=== PATIENT | female | born 1945 | race Caucasian/White ===

== ENCOUNTER 2017-04-12 19:58 | Emergency (ER) | payer MEDICARE, OTHER ==
--- NOTE | 2017-04-12 20:16 | ED Physician Documentation ---
PD HPI ALTERED MENTAL STATUS - Stated complaint Stated Complaint: CONFUSION - Chief complaint Chief Complaint: Neuro - History obtained from History obtained from: Patient - History of Present Illness Timing - onset: Enter time (18:00), Today Timing - duration: Hours Timing - details: Abrupt onset Quality / character: Memory Loss Associated symptoms: No: Fever, Headache, Stiff neck, Dyspnea, Cough, NVD, Urinary sx, General weakness, Focal weakness, Seizure activity, Syncope Contributing factors: Recent illness (URI/sinusitis (is on antibiotic)). No: Anticoagulated, Diabetic, New medication, Intoxicated Basline status: Alert and oriented X 3, Ambulatory, Independent Similar symptoms before: Has not had sx before Recently seen: Not recently seen - Additional information Additional information: patient arrives with sudden onset of significant memory loss. she has no recollection of the past month, including tonight and ED arrival. patient's friend is present in ED at bedside and says she was driving patient from friend' s house when patient suddenly, at 6 pm, started asking questions as to where she was that indicated memory loss. Patient arrived back to the area from a one- month trip to [facility] yesterday, and she has no recollection of any of this. Friend says patient's son picked her up at airport and then took her to an urgent care for URI symptoms. Patient, again, has no recollection of any of this. Review of Systems Unable to obtain: Confused (due to memory loss, ROS is limited to what patient can assess now (as opposed to symptoms she might have experienced prior to ED arrival)) Eyes: denies: Loss of vision, Decreased vision, Photophobia Ears: denies: Loss of hearing, Ear pain, Tinnitus/ringing Cardiac: reports: Reviewed and negative Respiratory: reports: Reviewed and negative GI: reports: Reviewed and negative : denies: Dysuria, Frequency Neurologic: reports: Altered mental status (memory loss). denies: Generalized weakness, Focal weakness, Numbness, Difficulty speaking, Near syncope, Syncope, Seizure, Unresponsive, Headache, Head injury, LOC PD PAST MEDICAL HISTORY - Past Medical History Cardiovascular: None Respiratory: None Neuro: Head injury (Oct 2011 with facial fracture and concussion; patient did not need surgery. ), Fainting (an episode about a week ago, preceded by general weakness and nausea with some vertigo. She awoke with nausea, vomiting, and diarrhea briefly, then better the next morning. 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 : None HEENT: None Psych: Depression, Anxiety Musculoskeletal: None Derm: None - Past Surgical History Past Surgical History: Yes /UPSTREAM BIOMANUFACTURING TECHNICIAN: Hysterectomy - Present Medications Home Medications: Ambulatory Orders Medication Instructions Recorded Confirmed Calcium [Calcio Madeline] 500 mg PO DAILY 08/18/12 08/18/12 - Allergies Allergies/Adverse Reactions: Allergies Allergy/AdvReac Type Severity Reaction Status Date / Time simvastatin Allergy Intermediate weak Verified 04/12/17 21:55 muscles - Social History Does the pt smoke?: No Smoking Status: Never smoker Does the pt have substance abuse?: No - Immunizations Immunizations are current?: Yes - POLST Patient has POLST: No PD ED PE NORMAL - Vitals Vital signs reviewed: Yes - General General: Well developed/nourished, Other (appropriately anxious, tearful at times due to being frightened with not being able to remember the past month) - HEENT HEENT: PERRL, EOMI, Moist mucous membranes - Neck Neck: Supple, no meningeal sign - Cardiac Cardiac: RRR, No murmur, No gallop, No rub - Respiratory Respiratory: No respiratory distress, Clear bilaterally - Abdomen Abdomen: Soft, Non tender - Derm Derm: Normal color, Warm and dry, No rash - Extremities Extremities: No edema - Neuro 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, No motor deficit, No sensory deficit, Normal speech, Other (AAOx2 (does not know day, date, month, year; does not know President)) Eye Opening: Spontaneous Motor: Obeys Commands Verbal: Confused (oriented x 2 (place, person, but not time)) GCS Score: 14 Results - Vitals Vitals: Oxygen O2 Source Room air - Labs Labs: Laboratory Tests 04/12/17 04/12/17 04/12/17 20:40 20:40 20:40 WBC 7.6 RBC 4.59 Hgb 12.9 Hct 39.9 MCV 86.9 MCH 28.1 MCHC 32.4 RDW 13.3 Plt Count 236 MPV 10.1 Neut # 4.9 Lymph # 1.7 [place] # 0.6 Eos # 0.3 Baso # 0.0 Absolute Nucleated RBC 0.00 Nucleated RBC % 0.1 PT 11.3 INR 1.0 APTT 27.2 Sodium 139 Potassium 3.7 Chloride 103 Carbon Dioxide 23 Anion Gap 13.0 BUN 15 Creatinine 0.8 Estimated GFR (MDRD) 71 L Glucose 101 H Calcium 9.4 Total Bilirubin 1.0 AST 31 ALT 30 Alkaline Phosphatase 85 Total Protein 8.1 Albumin 4.2 Globulin 3.9 Albumin/Globulin Ratio 1.1 Lipase 25 TSH Urine Color Urine Clarity Urine pH Ur Specific [place] Urine Protein Urine Glucose (UA) Urine Ketones Urine Occult Blood Urine Nitrite Urine Bilirubin Urine Urobilinogen Ur Leukocyte Esterase Ur Microscopic Review Urine Culture Comments Urine Opiates Screen Ur Oxycodone Screen Urine Methadone Screen Ur Propoxyphene Screen Ur Barbiturates Screen Ur Tricyclics Screen Ur Phencyclidine Scrn Ur Amphetamine Screen U Methamphetamines Scrn U Benzodiazepines Scrn Urine Cocaine Screen U Cannabinoids Screen Ethyl Alcohol 10.6 18 04/12/17 20:40 21:20 WBC RBC Hgb Hct MCV MCH MCHC RDW Plt Count MPV Neut # Lymph # [place] # Eos # Baso # Absolute Nucleated RBC Nucleated RBC % PT INR APTT Sodium Potassium Chloride Carbon Dioxide Anion Gap BUN Creatinine Estimated GFR (MDRD) Glucose Calcium Total Bilirubin AST ALT Alkaline Phosphatase Total Protein Albumin Globulin Albumin/Globulin Ratio Lipase TSH 5.61 H Urine Color YELLOW Urine Clarity CLEAR Urine pH 7.0 Ur Specific [place] 1.010 Urine Protein NEGATIVE Urine Glucose (UA) NEGATIVE Urine Ketones NEGATIVE Urine Occult Blood NEGATIVE Urine Nitrite NEGATIVE Urine Bilirubin NEGATIVE Urine Urobilinogen 0.2 (NORMAL) Ur Leukocyte Esterase NEGATIVE Ur Microscopic Review NOT INDICATED Urine Culture Comments NOT INDICATED Urine Opiates Screen NEGATIVE Ur Oxycodone Screen NEGATIVE Urine Methadone Screen NEGATIVE Ur Propoxyphene Screen NEGATIVE Ur Barbiturates Screen NEGATIVE Ur Tricyclics Screen NEGATIVE Ur Phencyclidine Scrn NEGATIVE Ur Amphetamine Screen NEGATIVE U Methamphetamines Scrn NEGATIVE U Benzodiazepines Scrn NEGATIVE Urine Cocaine Screen NEGATIVE U Cannabinoids Screen NEGATIVE Ethyl Alcohol - Rads (name of study) CT head Radiology: Prelim report reviewed, See rad report chest xray Radiology: Prelim report reviewed, See rad report PD MEDICAL DECISION MAKING - ED course Complexity details: reviewed results, re-evaluated patient, considered differential, d/w patient ED course: D/W Dr. Raphael (neurology at [facility]), recommends MRI. MRI not available in [facility] until tomorrow morning. I then contacted [facility], but they have no beds. Recontacted Dr. Raphael, accepts patient for transfer to [facility] for MRI. After several hours in ED, patient exhibited significant improvement in recall, and eventually remembered events up until the evening of ED visit. Departure - Departure Disposition: 02 Transfer Acute Care Hosp Clinical Impression: Altered mental status Qualifiers: Altered mental status type: unspecified Qualified Code(s): R41.82 - Altered mental status, unspecified Condition: Good Discharge Date/Time: 04/13/17 08:46
[2017-04-12 20:54] LABS: BASOPHILS % (AUTO) 0.7 %; EOSINOPHILS # (AUTO) 0.3 10^3/uL (0.0-0.7); EOSINOPHILS % (AUTO) 4.1 %; HGB - HEMOGLOBIN 12.9 g/dL (12.0-16.0); LYMPHOCYTES # (AUTO) 1.7 10^3/uL (1.5-3.5); LYMPHOCYTES % (AUTO) 22.7 %; MEAN CORPUSCULAR HEMOGLOBIN 28.1 pg (27.0-31.0); MEAN CORPUSCULAR HGB CONC 32.4 g/dL (32.0-36.0); MEAN CORPUSCULAR VOLUME 86.9 fL (81.0-99.0); MEAN PLATELET VOLUME 10.1 fL (7.9-10.8); MONOCYTES # (AUTO) 0.6 10^3/uL (0.0-1.0); MONOCYTES % (AUTO) 7.8 %; NEUTROPHILS # (AUTO) 4.9 10^3/uL (1.5-6.6); NEUTROPHILS % (AUTO) 64.7 %; PLT - PLATELET COUNT 236 10^3/uL (130-450); RED BLOOD COUNT 4.59 10^6/uL (4.20-5.40); RED CELL DISTRIBUTION WIDTH 13.3 % (12.0-15.0); WHITE BLOOD COUNT 7.6 x10^3/uL (4.8-10.8)
[2017-04-12 20:59] LABS: PT - PROTHROMBIN TIME 11.3 secs (9.9-12.6)
[2017-04-12 21:08] LABS: ALBUMIN 4.2 g/dL (3.2-5.5); ALBUMIN/GLOBULIN RATIO 1.1 (1.0-2.2); CALCIUM 9.4 mg/dL (8.5-10.3); CREATININE 0.8 mg/dL (0.4-1.0); TOTAL PROTEIN 8.1 g/dL (6.7-8.2)
[2017-04-12 21:23] LABS: MUDS CUTOFF CONCENTRATIONS CUTOFF CONC BELOW:
[2017-04-12 21:26] LABS: BILIRUBIN,URINE NEGATIVE (NEGATIVE); GLUCOSE, URINE (UA) NEGATIVE (NEGATIVE); KETONES,URINE (UA) NEGATIVE (NEGATIVE); LEUKOCYTE ESTERASE, URINE NEGATIVE (NEGATIVE); NITRITE,URINE NEGATIVE (NEGATIVE); OCCULT BLOOD,URINE NEGATIVE (NEGATIVE); PROTEIN,URINE NEGATIVE (NEGATIVE); UROBILINOGEN,URINE 0.2 (NORMAL) E.U./dL (NORMAL)
[2017-04-12 21:27] LABS: CLARITY,URINE CLEAR (CLEAR)
[2017-04-12 21:37] LABS: AMPHETAMINE SCREEN,URINE NEGATIVE (NEGATIVE); BENZODIAZEPINES SCREEN, URINE NEGATIVE (NEGATIVE); COCAINE SCREEN URINE NEGATIVE (NEGATIVE); METHADONE SCREEN, URINE NEGATIVE (NEGATIVE); METHAMPHETAMINES SCREEN, URINE NEGATIVE (NEGATIVE); OPIATE SCREEN, URINE NEGATIVE (NEGATIVE); OXYCODONE SCREEN, URINE NEGATIVE (NEGATIVE); PROPOXYPHENE SCREEN, URINE NEGATIVE (NEGATIVE); TRICYCLIC ANTIDEPRESSANT,URINE NEGATIVE (NEGATIVE)
--- NOTE | 2017-04-12 22:16 | CT Preliminary Report ---
Exam: CT HEAD W/O IMPRESSION: 1. No acute intracranial process. 2. Air-fluid level and bubbly secretions in the left sphenoid sinus. Clinical correlation for acute s inusitis is recommended. [facility] SITE ID: [id number]
--- NOTE | 2017-04-12 22:22 | XRAY Preliminary Report ---
Exam: XR CHEST 2 VIEW X-RAY IMPRESSION: 1. Borderline heart size. No acute abnormality seen. [facility] SITE ID: [id number]
--- NOTE | 2017-04-12 22:22 | XRAY Report ---
EXAM: CHEST RADIOGRAPHY EXAM DATE: 04/12/2017 09:54 PM. CLINICAL HISTORY: Decreased mental status. Cough. COMPARISON: None. TECHNIQUE: 2 views. FINDINGS: Lungs/Pleura: No alveolar consolidation or pleural effusion seen. No pneumothorax. Mediastinum: Heart size upper normal. Other: Left shoulder prosthesis. IMPRESSION: 1. Borderline heart size. No acute abnormality seen. [facility] Referring Provider Line: [phone] SITE ID: [id number]
--- NOTE | 2017-04-12 22:22 | CT Report ---
EXAM: CT HEAD EXAM DATE: 04/12/2017 10:01 PM. CLINICAL HISTORY: Altered mental status. COMPARISON: None. TECHNIQUE: Multiaxial CT images were obtained from the foramen magnum to the vertex. Reformats: Coron al. IV contrast: None. In accordance with CT protocol optimization, one or more of the following dose reduction techniques w ere utilized for this exam: automated exposure control, adjustment of mA and/or KV based on patient s ize, or use of iterative reconstructive technique. FINDINGS: Parenchyma: No intraparenchymal hemorrhage. No evidence of mass, midline shift, or CT findings of acu te infarction. Pitts-white differentiation is distinct. Extraaxial Spaces: Normal for age. No subdural or epidural collections identified. Ventricles: The ventricles are normal in size, position, and morphology. Sinuses and orbits: Mucosal thickening is present throughout the partially visualized paranasal sinus es with bubbly secretions and an air-fluid level in the left sphenoid sinus. Postsurgical changes fro m cataract extractions are noted in the globes. The mastoid sinuses are unremarkable. Bones: No evidence of fracture or calvarial defect. Other: Mild intracranial atherosclerosis is noted. IMPRESSION: 1. No acute intracranial process. 2. Air-fluid level and bubbly secretions in the left sphenoid sinus. Clinical correlation for acute s inusitis is recommended. [facility] Referring Provider Line: [phone] SITE ID: [id number]
[2017-04-13 07:34] VITALS: BP 154/92
== END 2017-04-13 08:46 | disposition short-term general hospital (02) ==
LOC: ED 19:58
DX: R41.82 Altered mental status, unspecified (principal)
CPT/HCPCS: 70450; 71046; 80053; 80306; 81003; 83690; 84443; 85025; 85610; 85730; 99284; 99285; G0480; 36415; 80320; 81001; 87086

== ENCOUNTER 2017-04-13 08:43 | Outpatient (CLI) | payer MEDICARE, OTHER | END 2017-04-13 08:44 | disposition short-term general hospital (02) | LOC: EMS 08:43 | PROVIDERS: ATTEND Surgery | DX: R41.3 Other amnesia (principal) | CPT/HCPCS: A0170; A0425; A0428 ==

== ENCOUNTER 2019-11-18 08:38 | Emergency (ER) | payer MEDICARE, OTHER ==
[2019-11-18] MEDS ORDERED: SODIUM CHLORIDE 0.9% 1,000 ML IV STA (09:15)
--- NOTE | 2019-11-18 09:15 | ED Physician Documentation ---
History of Present Illness - Stated complaint Stated Complaint: WEAKNESS/ABD PX - Chief complaint Chief Complaint: General - History obtained from History obtained from: Patient - History of Present Illness Timing: How many weeks ago (2) Pain level max: 6 Pain level now: 3 - Additonal information Additional information: Intermittent abdominal pain x 2 weeks. States seems to recur every 2-3 days. Mild nausea and chills. no vomiting. no diarrhea. Recent travel. No cough. No rhinorrhea or congestion. Nothing makes it better or worse. Review of Systems Ten Systems: 10 systems reviewed and negative Constitutional: reports: Chills. 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 : None HEENT: None Psych: Depression, Anxiety Musculoskeletal: None Derm: None - Past Surgical History Past Surgical History: Yes General: 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: Yes - POLST Patient has POLST: No PD ED PE NORMAL - Vitals Vital signs reviewed: Yes - General General: Alert and oriented X 3, No acute distress, Well developed/nourished - HEENT HEENT: PERRL, Moist mucous membranes - Neck Neck: Supple, no meningeal sign - Cardiac Cardiac: RRR, Strong equal pulses - Respiratory Respiratory: No respiratory distress, Clear bilaterally - Abdomen Abdomen: Normal bowel sounds, Soft, Non distended, Other (Tender to palpation r ight lower quadrant. Positive rebound, no guarding) - Back Back: No CVA TTP, No spinal TTP - Derm Derm: Warm and dry - Extremities Extremities: No edema - Neuro Neuro: Alert and oriented X 3 - Psych Psych: Normal mood, Normal affect Results - Vitals Vitals: Vital Signs - 24 hr 11/18/19 11/18/19 11/18/19 08:43 10:50 12:00 Temperature 36.8 C Heart Rate 80 73 62 Respiratory 18 20 18 Rate Blood Pressure 135/74 H 147/72 H 117/69 O2 Saturation 95 96 97 11/18/19 13:47 Temperature Heart Rate 68 Respiratory 18 Rate Blood Pressure 134/74 H O2 Saturation 97 Oxygen O2 Source Room air - Labs Labs: Laboratory Tests 11/18/19 11/18/19 11/18/19 09:22 09:22 09:22 WBC 9.1 RBC 4.37 Hgb 13.0 Hct 39.7 MCV 90.8 MCH 29.7 MCHC 32.7 RDW 13.3 Plt Count 257 MPV 10.7 Neut # (Auto) 6.4 Lymph # (Auto) 1.8 [place] # (Auto) 0.7 Eos # (Auto) 0.1 Baso # (Auto) 0.0 Absolute Nucleated RBC 0.00 Nucleated RBC % 0.0 Sodium 140 Potassium 4.1 Chloride 105 Carbon Dioxide 26 Anion Gap 9.0 BUN 19 Creatinine 0.8 Estimated GFR (MDRD) 70 L Glucose 98 Calcium 8.6 Total Bilirubin 0.9 AST 24 ALT 24 Alkaline Phosphatase 85 Total Protein 7.3 Albumin 3.9 Globulin 3.4 Albumin/Globulin Ratio 1.1 Lipase 37 Urine Color YELLOW Urine Clarity CLEAR Urine pH 8.0 H Ur Specific [place] 1.020 Urine Protein NEGATIVE Urine Glucose (UA) NEGATIVE Urine Ketones NEGATIVE Urine Occult Blood NEGATIVE Urine Nitrite NEGATIVE Urine Bilirubin NEGATIVE Urine Urobilinogen 0.2 (NORMAL) Ur Leukocyte Esterase NEGATIVE Ur Microscopic Review NOT INDICATED Urine Culture Comments NOT INDICATED - Rads (name of study) CT abdomen and pelvis Radiology: Prelim report reviewed, EMP read contemporaneously, See rad report PD MEDICAL DECISION MAKING - ED course Complexity details: reviewed results, re-evaluated patient, considered differential, d/w patient ED course: 74-year-old female presents to the emergency department with abdominal pain intermittently. She is tender in the right lower quadrant, CT scan shows possible appendicitis. I consulted general surgery, Dr. Walker who came and evaluated the patient. Symptoms had resolved by the time she was evaluated. Patient did receive a dose of IV Zosyn. We will trial her on oral antibiotics for possible early appendicitis and have her follow-up closely with her doctor. She will return here if she worsens. Patient counseled regarding signs and symptoms for which I believe and urgent re-evaluation would be necessary. Patient with good understanding of and agreement to plan and is comfortable going home at this time This document was made in part using voice recognition software. While efforts are made to proofread this document, sound alike and grammatical errors may occur. 1. Appendix is mildly enlarged measuring 8 mm. There is subtle increased appendiceal wall enhancement. No significant periappendiceal stranding. The CT findings are equivocal for early acute appendicitis. Recommend clinical correlation. Findings to suggest appendiceal perforation or abscess. 2. Small fat-containing inguinal hernias. 3. Left parapelvic cyst versus mild hydronephrosis. If clinically indicated, non--urgent renal ultrasound may be helpful. 4. Small hiatal hernia. Departure - Departure Disposition: 01 Home, Self Care Clinical Impression: Abdominal pain Qualifiers: Abdominal location: unspecified location Qualified Code(s): R10.9 - Unspecified abdominal pain Condition: Good Instructions: ED Abdominal Pain Unkn Cause Follow-Up: SANTOS NAIR MD [Primary Care Provider] - Within 1 week Prescriptions: Amox/Clav 875/125 [Augmentin] 1 each PO Q12H #20 tablet Comments: Return if you worsen. Take all antibiotics until gone. This could be an early appendicitis. If you worsen, return to the ER. Discharge Date/Time: 11/18/19 13:51
[2019-11-18] MEDS ORDERED: IOVERSOL 320 100 ML VIAL IVP ONE ×2 (09:28→13:38)
[2019-11-18 09:35] LABS: BILIRUBIN,URINE NEGATIVE (NEGATIVE); GLUCOSE, URINE (UA) NEGATIVE (NEGATIVE); KETONES,URINE (UA) NEGATIVE (NEGATIVE); LEUKOCYTE ESTERASE, URINE NEGATIVE (NEGATIVE); NITRITE,URINE NEGATIVE (NEGATIVE); OCCULT BLOOD,URINE NEGATIVE (NEGATIVE); PROTEIN,URINE NEGATIVE (NEGATIVE); UROBILINOGEN,URINE 0.2 (NORMAL) E.U./dL (NORMAL)
[2019-11-18 09:37] LABS: BASOPHILS % (AUTO) 0.4 %; CLARITY,URINE CLEAR (CLEAR); EOSINOPHILS # (AUTO) 0.1 10^3/uL (0.0-0.7); EOSINOPHILS % (AUTO) 1.5 %; LYMPHOCYTES # (AUTO) 1.8 10^3/uL (1.5-3.5); LYMPHOCYTES % (AUTO) 19.8 %; MEAN CORPUSCULAR HEMOGLOBIN 29.7 pg (27.0-31.0); MEAN CORPUSCULAR HGB CONC 32.7 g/dL (32.0-36.0); MEAN CORPUSCULAR VOLUME 90.8 fL (81.0-99.0); MEAN PLATELET VOLUME 10.7 fL (7.9-10.8); MONOCYTES # (AUTO) 0.7 10^3/uL (0.0-1.0); MONOCYTES % (AUTO) 7.2 %; NEUTROPHILS # (AUTO) 6.4 10^3/uL (1.5-6.6); NEUTROPHILS % (AUTO) 70.8 %; PLT - PLATELET COUNT 257 10^3/uL (130-450); RED BLOOD COUNT 4.37 10^6/uL (4.20-5.40); RED CELL DISTRIBUTION WIDTH 13.3 % (12.0-15.0); WHITE BLOOD COUNT 9.1 x10^3/uL (4.8-10.8)
[2019-11-18 09:51] LABS: ALBUMIN 3.9 g/dL (3.2-5.5); ALBUMIN/GLOBULIN RATIO 1.1 (1.0-2.2); BILIRUBIN,TOTAL 0.9 mg/dL (0.2-1.0); CALCIUM 8.6 mg/dL (8.5-10.3); CREATININE 0.8 mg/dL (0.4-1.0); TOTAL PROTEIN 7.3 g/dL (6.7-8.2)
[2019-11-18] MEDS ORDERED: PIPERACILLIN/TAZOBACTAM 3.375 GM in SODIUM CHLORIDE 0.9% MINIBAG 100 ML IV STA (10:49)
--- NOTE | 2019-11-18 10:49 | CT Report ---
PROCEDURE: Abdomen/Pelvis W INDICATIONS: RLQ Abdominal pain and tenderness. CONTRAST: IV CONTRAST: Optiray 320 ml: 100 PO CONTRAST: *NO PO CONTRAST TECHNIQUE: After the administration of intravenous contrast, 5 mm thick sections acquired from the diaphragms to the symphysis. 5 mm thick coronal and sagittal reformats were acquired. For radiation dose reducti on, the following was used: automated exposure control, adjustment of mA and/or kV according to cheryl ent size. COMPARISON: None. FINDINGS: Image quality: Excellent. ABDOMEN: Lung bases: Mild bibasilar dependent atelectasis. Heart size is normal. Small hiatal hernia. Solid organs: Liver and spleen are normal in size and enhancement. Gallbladder is normal. Biliary system is non dilated. Pancreas enhances normally. No adrenal nodules. Kidneys demonstrate normal size and enhancement, without hydronephrosis. There are multiple parapelvic cysts or hydronephrosis in left kidney. The left ureter is not distended. Peritoneum and bowel: Appendix is mildly enlarged. 8 mm. There is subtle increased appendiceal wall enhancement. No significant stranding, free fluid or fluid collections in the right lower quadrant. N o free air. Nodes and vessels: No retroperitoneal or mesenteric adenopathy by size criteria. Aorta and inferior vena cava are normal in size. Miscellaneous: No ventral hernias. PELVIS: Genitourinary: Bladder wall thickness is normal. Uterus and ovaries are absent. Miscellaneous: No inguinal adenopathy. Small fat-containing inguinal hernias are noted bilaterally. Bones: No suspicious bony lesions. No vertebral body compression fractures. IMPRESSION: 1. Appendix is mildly enlarged measuring 8 mm. There is subtle increased appendiceal wall enhancement . No significant periappendiceal stranding. The CT findings are equivocal for early acute appendiciti s. Recommend clinical correlation. Findings to suggest appendiceal perforation or abscess. 2. Small fat-containing inguinal hernias. 3. Left parapelvic cyst versus mild hydronephrosis. If clinically indicated, non--urgent renal ultras ound may be helpful. 4. Small hiatal hernia. Reviewed by: Viky Perez MD on 11/18/2019 10:48 AM PDT Approved by: Viky Perez MD on 11/18/2019 10:48 AM PDT Station ID: [id number]
[2019-11-18 13:47] VITALS: BP 134/74
--- NOTE | 2019-11-18 14:20 | CONSULTATION NOTE ---
Referring Provider Name of Referring Provider:: Dr. 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 : reports: None HEENT: reports: None Psych: reports: Depression, Anxiety Musculoskeletal: reports: None Derm: reports: None MRSA Hx?: No - Past Surgical History General: 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: 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: 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: Hysterectomy HEENT: reports: Tonsil/Adenoidectomy - POLST Patient has POLST: No Meds/Allgy - Home Medications Home Medications: Ambulatory Orders Medication Instructions Recorded Confirmed Amox/Clav 875/125 [Augmentin] 1 each PO Q12H #20 tablet 11/18/19 Simvastatin 20 mg PO DAILY PM 11/18/19 11/18/19 - Allergies Allergies/Adverse Reactions: Allergies Allergy/AdvReac Type Severity Reaction Status Date / Time No Known Drug Allergies Allergy Verified 11/18/19 08:52 Exam - Vital Signs Vital Signs: Vital Signs x48h Temp Pulse Resp BP Pulse Ox 11/18/19 13:47 68 18 134/74 H 97 11/18/19 12:00 62 18 117/69 97 11/18/19 10:50 73 20 147/72 H 96 11/18/19 08:43 36.8 C 80 18 135/74 H 95 Conclusion and Plan - Lab Results Laboratory Results 11/18/19 09:22: Urine Color YELLOW, Urine Clarity CLEAR, Urine pH 8.0 H, Ur Specific [place] 1.020, Urine Protein NEGATIVE, Urine Glucose (UA) NEGATIVE, Urine Ketones NEGATIVE, Urine Occult Blood NEGATIVE, Urine Nitrite NEGATIVE, Urine Bilirubin NEGATIVE, Urine Urobilinogen 0.2 (NORMAL), Ur Leukocyte Esterase NEGATIVE, Ur Microscopic Review NOT INDICATED, Urine Culture Comments NOT INDICATED 11/18/19 09:22: Sodium 140, Potassium 4.1, Chloride 105, Carbon Dioxide 26, Anion Gap 9.0, BUN 19, Creatinine 0.8, Estimated GFR (MDRD) 70 L, Glucose 98, Calcium 8.6, Total Bilirubin 0.9, AST 24, ALT 24, Alkaline Phosphatase 85, Total Protein 7.3, Albumin 3.9, Globulin 3.4, Albumin/Globulin Ratio 1.1, Lipase 37 // 09:22: WBC 9.1, RBC 4.37, Hgb 13.0, Hct 39.7, MCV 90.8, MCH 29.7, MCHC 32.7, RDW 13.3, Plt Count 257, MPV 10.7, Neut # (Auto) 6.4, Lymph # (Auto) 1.8, [place] # (Auto) 0.7, Eos # (Auto) 0.1, Baso # (Auto) 0.0, Absolute Nucleated RBC 0.00, Nucleated RBC % 0.0
== END 2019-11-18 13:51 | disposition home or self-care (01) ==
LOC: ED 08:38
DX: R10.31 Right lower quadrant pain (principal); R11.0 Nausea; R53.81 Other malaise; Z20.828 Contact with and (suspected) exposure to other viral communicable diseases; K40.20 Bilateral inguinal hernia, without obstruction or gangrene, not specified as recurrent; K44.9 Diaphragmatic hernia without obstruction or gangrene
CPT/HCPCS: 36415; 74177; 80053; 81003; 83690; 85025; 96361; 96365; 96366; 99284; Q9967; U0004; 81001; 87086

== ENCOUNTER 2022-06-30 14:14 | Emergency (ER) | payer MEDICARE, OTHER ==
[2022-06-30 14:31] VITALS: BP 125/62
[2022-06-30] MEDS ORDERED: IBUPROFEN 600 MG TABLET PO STA (14:45)
--- NOTE | 2022-06-30 14:48 | ED Physician Documentation ---
History of Present Illness - Stated complaint Stated Complaint: LT SIDE PX - Chief complaint Chief Complaint: Back Pain - History obtained from History obtained from: Patient - Additonal information Additional information: The patient comes to the emergency department with chief complaint of pain of her ribs on her left black breast after leaning over a plank this afternoon and falling on it. She states that the plank was sitting on a log and she forgot the plank was not attached and if she leaned over the log/plank to get something, the plank rolled off and she fell with it, driving it into her anterior chest/upper abdomen. The patient states that it hurts to take a deep breath. It did not initially hurt much but over the last couple of hours since the incident happened, she has noticed increasing pain with deep breaths. No specific abdominal pain. The patient was not injured in any other way. 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: Hysterectomy HEENT: Tonsil/Adenoidectomy - Present Medications Home Medications: Ambulatory Orders Medication Instructions Recorded Confirmed Simvastatin 20 mg PO DAILY PM 11/18/19 06/30/22 - Allergies Allergies/Adverse Reactions: Allergies Allergy/AdvReac Type Severity Reaction Status Date / Time codeine AdvReac Nausea Verified 06/30/22 14:32 - Social History Does the pt smoke?: No Smoking Status: Never smoker Does the pt drink ETOH?: Yes Does the pt have substance abuse?: No - Immunizations Immunizations are current?: Yes - POLST Patient has POLST: No PD ED PE NORMAL - Vitals Vital signs reviewed: Yes - General General: Alert and oriented X 3, No acute distress, Well developed/nourished - HEENT HEENT: Atraumatic, PERRL, EOMI, Moist mucous membranes - Neck Neck: Supple, no meningeal sign, No bony TTP - Cardiac Cardiac: RRR, No murmur, Strong equal pulses - Respiratory Respiratory: No respiratory distress, Clear bilaterally - Abdomen Abdomen: Soft, Non tender, Non distended - Derm Derm: Normal color, Warm and dry, No rash - Extremities Extremities: No deformity, Normal ROM s pain, No edema - Neuro Neuro: Alert and oriented X 3 - Psych Psych: Normal mood, Normal affect PD ED PE EXPANDED - Free text exam Free text exam: Tenderness to palpation without deformity or crepitus over left anterolateral rib cage around the ribs 5 through 7 level. Results - Vitals Vitals: Vital Signs - 24 hr 06/30/22 14:27 Temperature 36.5 C Heart Rate 87 Respiratory 16 Rate Blood Pressure 125/62 O2 Saturation 97 Oxygen O2 Source Room air - Rads (name of study) X-ray left ribs and chest Relevant Findings:: Final report received, See rad report (Negative) PD Medical Decision Making - ED course Complexity details: reviewed results, re-evaluated patient, considered differential, d/w patient ED course: The patient was worked up with an x-ray series of her left ribs and chest, which was unremarkable. She was also given a dose of ibuprofen here in the emergency department. We have discussed symptomatic management at home and the usual indications for return. Departure - Departure Disposition: 01 Home, Self Care Clinical Impression: Contusion of rib on left side Qualifiers: Encounter type: initial encounter Qualified Code(s): S20.212A - Contusion of left front wall of thorax, initial encounter Condition: Stable Instructions: ED Contusion Rib Comments: Your x-ray series looks great. There is no evidence of any broken ribs and there is no evidence of a punctured lung or any other concerning findings. Most likely, you have bruised her rib cage when you levered against the plank and fell. The area will most likely be sore over the next couple of weeks. You may take ibuprofen 600 mg every 6 hours and Tylenol 650 mg every 4 hours, as needed for discomfort. You may also use ice to help with the soreness. Stretching your chest may help to. Please follow-up with your primary doctor as needed. Discharge Date/Time: 06/30/22 15:54
--- NOTE | 2022-06-30 15:13 | XRAY Report ---
PROCEDURE: Ribs w/PA Chest LT INDICATIONS: injury/L ant-lat rib 5-7 pain/tend TECHNIQUE: 2 views of the left ribs were acquired, along with a single view chest. COMPARISON: None. FINDINGS: Surgical changes and devices: Left shoulder prosthesis. Bones and chest wall: No fractures or dislocations. No suspicious bony lesions. Overlying soft tis sues appear unremarkable. Lungs and pleura: No pleural effusions or pneumothorax. Lungs appear clear. Mediastinum: Mediastinal contours appear normal. Heart size is normal. IMPRESSION: No displaced rib fracture or pneumothorax. Reviewed by: Des Marina MD on 06/30/2022 2:12 PM AKDT Approved by: Des Marina MD on 06/30/2022 2:12 PM AKDT Station ID: [id number]
== END 2022-06-30 15:54 | disposition home or self-care (01) ==
LOC: ED 14:14
DX: S20.212A Contusion of left front wall of thorax, initial encounter (principal); W01.0XXA Fall on same level from slipping, tripping and stumbling without subsequent striking against object, initial encounter
CPT/HCPCS: 71101; 99283; A9270

== ENCOUNTER 2022-08-01 18:23 | Emergency (ER) | payer MEDICARE, OTHER ==
--- NOTE | 2022-08-01 18:47 | ED Physician Documentation ---
PD HPI CHEST PAIN - Stated complaint Stated Complaint: CHEST TIGHT/L ARM NUMB - Chief complaint Chief Complaint: Cardiac - History obtained from History obtained from: Patient - Additional information Additional information: Around 3:00 this afternoon while at rest she developed substernal chest pain with numbness in the left arm. There is no associated shortness of breath with it. No dizziness. No history of heart problems. She is generally very healthy with the exception of some arthritis. No risk factors for coronary disease other than age. 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: Hysterectomy HEENT: Tonsil/Adenoidectomy - Present Medications Home Medications: Ambulatory Orders Medication Instructions Recorded Confirmed Simvastatin 20 mg PO DAILY PM 11/18/19 06/30/22 - Allergies Allergies/Adverse Reactions: Allergies Allergy/AdvReac Type Severity Reaction Status Date / Time codeine AdvReac Nausea Verified 06/30/22 14:32 - Social History Does the pt smoke?: No Smoking Status: Never smoker Does the pt drink ETOH?: Yes Does the pt have substance abuse?: No - Immunizations Immunizations are current?: Yes - POLST Patient has POLST: No PD ED PE NORMAL - Vitals Vital signs reviewed: Yes - General General: Alert and oriented X 3, No acute distress - Cardiac Cardiac: RRR, No murmur - Respiratory Respiratory: No respiratory distress, Clear bilaterally - Abdomen Abdomen: Non tender - Extremities Extremities: No edema, No calf tenderness / cord, Other (Excellent pedal and radial pulses) - Neuro Neuro: Alert and oriented X 3, Normal speech Results - Vitals Vitals: Vital Signs - 24 hr 08/01/22 08/01/22 08/01/22 18:34 19:12 19:30 Temperature 36.9 C Heart Rate 68 97 67 Respiratory 16 19 13 Rate Blood Pressure 148/84 H 140/88 H 154/80 H O2 Saturation 99 98 99 08/01/22 08/01/22 20:00 21:02 Temperature Heart Rate 66 65 Respiratory 17 19 Rate Blood Pressure 142/75 H 137/79 H O2 Saturation 98 99 Oxygen O2 Source Room air - EKG (time done) 1827 EKG releavant findings:: EKG personally interpreted by author of this note. Relevant findings are: Rate: Rate (enter#) (68) Rhythm: NSR [place]: Normal QRS: Normal, LVH Ischemia: Normal ST segments - Labs Labs: Laboratory Tests 08/01/22 08/01/22 08/01/22 19:14 19:14 19:14 WBC 6.3 RBC 4.37 Hgb 13.0 Hct 39.9 MCV 91.3 MCH 29.7 MCHC 32.6 RDW 13.4 Plt Count 233 MPV 10.8 Neut # (Auto) 3.4 Lymph # (Auto) 2.1 [place] # (Auto) 0.5 Eos # (Auto) 0.1 Baso # (Auto) 0.1 Absolute Nucleated RBC 0.00 Nucleated RBC % 0.0 Sodium 137 Potassium 3.7 Chloride 105 Carbon Dioxide 24 Anion Gap 8.0 BUN 18 Creatinine 0.8 Estimated GFR (MDRD) 70 L Glucose 88 Calcium 9.0 Total Bilirubin 1.2 H AST 24 ALT 22 Alkaline Phosphatase 73 Troponin I High Sens 3.1 Total Protein 7.3 Albumin 3.9 Globulin 3.4 Albumin/Globulin Ratio 1.1 Lipase 41 - Rads (name of study) 1v cxr Relevant Findings:: Final report received, EMP independent interpretation of test PD Medical Decision Making - ED course ED course: 77-year-old woman who is had chest pain this afternoon with negative biomarkers and nonischemic EKG. Heart score is 3. Nothing in the history or physical to suggest pulmonary embolism. Departure - Departure Disposition: 01 Home, Self Care Clinical Impression: Chest pain Qualifiers: Chest pain type: unspecified Qualified Code(s): R07.9 - Chest pain, unspecified Condition: Good Record reviewed to determine appropriate education?: Yes Instructions: ED Chest Pain Atypical Unkn Cause Comments: Chest x-ray and cardiac enzymes looking fine. Follow-up with your primary care physician next available appointment. Return for new or worsening symptoms. 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 Discharge Date/Time: 08/01/22 21:03
[2022-08-01 19:21] LABS: BASOPHILS # (AUTO) 0.1 10^3/uL (0.0-0.1); BASOPHILS % (AUTO) 0.8 %; EOSINOPHILS # (AUTO) 0.1 10^3/uL (0.0-0.7); EOSINOPHILS % (AUTO) 2.2 %; HCT - HEMATOCRIT 39.9 % (37.0-47.0); LYMPHOCYTES # (AUTO) 2.1 10^3/uL (1.5-3.5); LYMPHOCYTES % (AUTO) 33.6 %; MEAN CORPUSCULAR HEMOGLOBIN 29.7 pg (27.0-31.0); MEAN CORPUSCULAR HGB CONC 32.6 g/dL (32.0-36.0); MEAN CORPUSCULAR VOLUME 91.3 fL (81.0-99.0); MEAN PLATELET VOLUME 10.8 fL (7.9-10.8); MONOCYTES # (AUTO) 0.5 10^3/uL (0.0-1.0); MONOCYTES % (AUTO) 8.5 %; NEUTROPHILS # (AUTO) 3.4 10^3/uL (1.5-6.6); NEUTROPHILS % (AUTO) 54.7 %; PLT - PLATELET COUNT 233 10^3/uL (130-450); RED BLOOD COUNT 4.37 10^6/uL (4.20-5.40); RED CELL DISTRIBUTION WIDTH 13.4 % (12.0-15.0); WHITE BLOOD COUNT 6.3 x10^3/uL (4.8-10.8)
[2022-08-01 19:35] LABS: ALBUMIN 3.9 g/dL (3.2-5.5); ALBUMIN/GLOBULIN RATIO 1.1 (1.0-2.2); BILIRUBIN,TOTAL 1.2 mg/dL (0.2-1.0); CREATININE 0.8 mg/dL (0.4-1.0); POTASSIUM 3.7 mmol/L (3.5-5.0); TOTAL PROTEIN 7.3 g/dL (6.7-8.2)
--- NOTE | 2022-08-01 20:33 | XRAY Report ---
PROCEDURE: Chest 1 View X-Ray INDICATIONS: Chest Pain TECHNIQUE: One view of the chest was acquired. COMPARISON: 04/12/2017, 06/30/2022 FINDINGS: Surgical changes and devices: Partially seen left shoulder reverse arthroplasty. Lungs and pleura: No dense consolidation or pleural effusion. Mediastinum: Heart size is within Bones and chest wall: No suspicious bony lesions. Overlying soft tissues appear unremarkable. IMPRESSION: No acute radiographic abnormality. Reviewed by: aNdir Mckeon MD on 08/01/2022 8:32 PM PDT Approved by: Nadir Mckeon MD on 08/01/2022 8:32 PM PDT Station ID: [id number]
[2022-08-01 21:03] VITALS: BP 137/79
== END 2022-08-01 21:03 | disposition home or self-care (01) ==
LOC: ED 18:23
DX: R07.9 Chest pain, unspecified (principal)
CPT/HCPCS: 36415; 80053; 83690; 84484; 85025; 93005; 99283; 99284